=== PATIENT | male | born 1990 | race Caucasian/White ===

== ENCOUNTER 2021-09-16 22:10 | Inpatient (IN) | payer SELFPAY ==
[2021-09-16 22:45] VITALS: BP 148/106; PULSE 78; TEMP 97.9; BMI 32.8
[2021-09-16] MEDS ORDERED: IBUPROFEN 400 MG TABLET (FP) PO PRN (23:09)
[2021-09-16] MEDS ORDERED: MAGNESIUM CITRATE 300 ML BOTTLE PO PRN (23:09)
[2021-09-16] MEDS ORDERED: MAG HYDROX/AL HYDROX/SIMETH 30 ML UNIT-DOSE CUP PO PRN (23:09)
[2021-09-16] MEDS ORDERED: DICYCLOMINE HCL 10 MG CAPSULE PO PRN (23:09)
[2021-09-16] MEDS ORDERED: hydrOXYzine PAMOATE 25 MG CAPSULE (FP) PO PRN (23:09)
[2021-09-16] MEDS ORDERED: MENTHOL/PHENOL 1 EACH UD MM PRN (23:09)
[2021-09-16] MEDS ORDERED: ACETAMINOPHEN 325 MG TABLET (FP) PO PRN ×2 (23:09)
[2021-09-16] MEDS ORDERED: METHOCARBAMOL 500 MG TABLET PO PRN (23:09)
[2021-09-16] MEDS ORDERED: MAGNESIUM HYDROX 2400MG/30ML ORAL SUSPENSION 30 ML CUP PO PRN (23:09)
[2021-09-16] MEDS ORDERED: ONDANSETRON *ODT* 4 MG TABLET SL PRN (23:09)
[2021-09-16] MEDS ORDERED: BISMUTH SUBSALICYLATE 524 MG/30 ML PO PRN (23:09)
[2021-09-17] MEDS ORDERED: PRENATAL VITAMINS W/ FOLIC ACID TABLET (FP) PO SCH (10:00)
[2021-09-17] MEDS ORDERED: LISINOPRIL 20 MG TABLET PO SCH (10:00)
[2021-09-17] MEDS ORDERED: amLODIPine BESYLATE 5 MG TABLET (FP) PO SCH (10:00)
[2021-09-17] MEDS ORDERED: HYDROCHLOROTHIAZIDE 25 MG TABLET (FP) PO SCH (10:00)
[2021-09-17] MEDS ORDERED: THIAMINE HCL 100 MG TABLET (FP) PO SCH (22:00)
[2021-09-17] MEDS ORDERED: MELATONIN 5 MG TABLETS PO SCH (22:00)
== END 2021-09-17 00:54 | disposition left against medical advice (07) | DRG 770 ==
LOC: YASAS 22:10 → Y6N 23:45
PROVIDERS: ADMIT Allergy & Immunology; ATTEND Allergy & Immunology
PROC: HZ2ZZZZ Detoxification Services for Substance Abuse Treatment (ICD-10-PCS; principal; 2021-09-16)
DX: F11.23 Opioid dependence with withdrawal (principal); F13.10 Sedative, hypnotic or anxiolytic abuse, uncomplicated; F12.20 Cannabis dependence, uncomplicated; F17.210 Nicotine dependence, cigarettes, uncomplicated; F41.9 Anxiety disorder, unspecified; F32.9 Major depressive disorder, single episode, unspecified; I10 Essential (primary) hypertension; M54.50 Low back pain, unspecified; G89.29 Other chronic pain